=== PATIENT | male | born 2000 ===

== ENCOUNTER 2018-11-03 19:14 | Emergency (ER) | payer MEDICAID ==
--- NOTE | 2018-11-03 20:25 | EDM.PDOC ---
ED HPI GENERAL MEDICAL PROBLEM - General Chief Complaint: Lower Extremity Injury/Pain Stated Complaint: LEFT KNEE PAIN Time Seen by Provider: 11/03/18 20:00 Source of Information: Reports: Patient History Limitations: Reports: No Limitations - History of Present Illness INITIAL COMMENTS - FREE TEXT/NARRATIVE: HISTORY AND PHYSICAL: History of present illness: Patient is a 18-year-old male here with complaint of left knee pain. He states a few days ago he had ran 2 miles and afterwards he had dewey splints on both sides which is not unusual for him. 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 He states it hurts to put his full weight on it and when bending the knee. He is taking Tylenol without any relief of symptoms. Review of systems: As per history of present illness and below otherwise all systems reviewed and negative. Past medical history: As per history of present illness and as reviewed below otherwise noncontributory. Surgical history: As per history of present illness and as reviewed below otherwise noncontributory. Social history: No reported history of drug or alcohol abuse. Family history: As per history of present illness and as reviewed below otherwise noncontributory. Physical exam: General: Patient sitting comfortably in no acute distress and nontoxic appearing HEENT: Atraumatic, normocephalic, pupils reactive, negative for conjunctival pallor or scleral icterus, mucous membranes moist, throat clear, neck supple, nontender, trachea midline. No meningeal signs. Lungs: Clear to auscultation, breath sounds equal bilaterally, chest nontender. Heart: S1S2, regular, negative for clicks, rubs, or overt murmur. Abdomen: Soft, nondistended, nontender. Negative for masses or hepatosplenomegaly. Negative for costovertebral tenderness. Pelvis: Stable nontender. Genitourinary: Deferred. Rectal: Deferred. Extremities: No obvious deformity erythema, warmth,or swelling. Pain to palpation around the left patellar tendon and tibial plateau. Normal ROM without pain. Negative varus and valgus stress, negative anterior and posterior drawer. Atraumatic, negative for cords or calf pain. Neurovascular unremarkable. Neuro: Awake, alert, oriented. Cranial nerves II through XII unremarkable. Cerebellum unremarkable. Motor and sensory unremarkable throughout. Exam nonfocal. Notes: Diagnostics: X-ray left knee Therapeutics: None Prescriptions: None Impression: Patellar tendinitis Plan: 1. Ice, elevate, and Motrin as instructed. 2. Follow-up with primary care provider 3. Return to ED as needed as discussed Definitive disposition and diagnosis as appropriate pending reevaluation and review of above. Left Knee Pain Score (Numeric/FACES): 8 - Related Data Allergies Allergy/AdvReac Type Severity Reaction Status Date / Time No Known Allergies Allergy Verified 11/03/18 20:04 Home Meds: Home Meds . [No Known Home Meds] 11/03/18 [History] Past Medical History - Past Health History Medical/Surgical History: Denies Medical/Surgical History Social & Family History - Family History Family Medical History: Noncontributory - Tobacco Use Smoking Status *Q: Never Smoker - Recreational Drug Use Recreational Drug Use: No Review of Systems - Review of Systems Review Of Systems: ROS reveals no pertinent complaints other than HPI. ED EXAM, GENERAL - Physical Exam Exam: See Below (See dictation) Course - Vital Signs Last Recorded V/S: Last Vital Signs Temp 98.3 F 11/03/18 19:59 Pulse 68 11/03/18 20:33 Resp 18 11/03/18 19:59 BP 130/74 11/03/18 20:33 Pulse Ox 97 11/03/18 20:33 - Orders/Labs/Meds Orders: Active Orders 24 hr Category Date Time Status Knee 3V Lt [CR] Stat Exams 11/03/18 19:26 Taken Departure - Departure Time of Disposition: 20:24 Disposition: Home, Self-Care 01 Condition: Good Clinical Impression: Patellar tendonitis - Discharge Information Instructions: Patellar Tendinitis Referrals: PCP,None [Primary Care Provider] - Forms: ED Department Discharge Additional Instructions: The following information is given to patients seen in the emergency department who are being discharged to home. This information is to outline your options for follow-up care. We provide all patients seen in our emergency department with a follow-up referral. The need for follow-up, as well as the timing and circumstances, are variable depending upon the specifics of your emergency department visit. If you don't have a primary care physician on staff, we will provide you with a referral. We always advise you to contact your personal physician following an emergency department visit to inform them of the circumstance of the visit and for follow-up with them and/or the need for any referrals to a consulting specialist. The emergency department will also refer you to a specialist when appropriate. This referral assures that you have the opportunity for follow-up care with a specialist. All of these measure are taken in an effort to provide you with optimal care, which includes your follow-up. Under all circumstances we always encourage you to contact your private physician who remains a resource for coordinating your care. When calling for follow-up care, please make the office aware that this follow-up is from your recent emergency room visit. If for any reason you are refused follow-up, please contact the [facility] Emergency Department at and asked to speak to the emergency department charge nurse. [facility] [address] [place] [id number] [place] [address] 1. Ice, elevate, and Motrin as instructed. 2. Follow-up with primary care provider 3. Return to ED as needed as discussed
--- NOTE | 2018-11-04 18:57 | CR ---
EXAM DATE: 11/03/18 PATIENT'S AGE: 18 Patient: JOANNE ALARCON Facility: [place], [place] Site . Site : 2000 Study: XRay Knee Left [id number]/[id number] 7:53:51 PM Ordering Physician: Doctor Croft Final Report: Pain 3 views of the left knee Findings: Three views of the left knee demonstrates normal alignment. No fractures. No effusions. IMPRESSION: 1. Unremarkable left knee. Dictated by Latanya Conner MD @ Nov 03 2018 8:12PM (Electronic Signature) Report Signed by Proxy. STEFFANIE
== END 2018-11-03 20:34 | disposition home or self-care (01) ==
LOC: MW.ED 19:14
DX: M76.52 Patellar tendinitis, left knee (principal)
CPT/HCPCS: 73562-26-LT; 73562-LT; 99283